=== PATIENT | female | born 1945 | race Caucasian/White ===

== ENCOUNTER 2019-11-23 22:10 | Emergency (ER) | payer MEDICARE, OTHER ==
[~2019-11-23] VITALS: Ht 170.2 cm; Wt 90.7 kg
[~2019-11-23 22:10] MED LIST: CELEXA20 MG PO; DESYREL150 MG PO; DILTIAZEM ER240 M1 PO; TRAZODONE 150150 M1 PO
[2019-11-23] MEDS ORDERED: HYDROCODON-ACE1 EAC7 PO (23:18)
[2019-11-24] VITALS: BP 131/50
== END 2019-11-24 | disposition home or self-care (01) ==
LOC: M.ERS 22:10
DX: S92.352A Displaced fracture of fifth metatarsal bone, left foot, initial encounter for closed fracture (principal); Z88.8 Allergy status to other drugs, medicaments and biological substances; W10.9XXA Fall (on) (from) unspecified stairs and steps, initial encounter; Y93.01 Activity, walking, marching and hiking; Y92.89 Other specified places as the place of occurrence of the external cause; Y99.8 Other external cause status